=== PATIENT | female | born 1975 | race Caucasian/White ===

== ENCOUNTER 2016-12-14 06:42 | Inpatient (IN) | payer BC ==
[~2016-12-14] VITALS: Ht 167.6 cm; Wt 72.6 kg
[~2016-12-14 06:42] MED LIST: ATIVAN1 MG PO; NORCO1 TA2 PO; SERTRALINE HYDR50 M1 PO; VALIUM2 MG PO; WELLBUTRIN SR150 MG PO
[2016-12-14 07:26] LABS: BASOPHIL % 0.4 % (0-2); PLATELET COUNT 302 x10^3mcL (130-400); RED CELL DISTRIBUTION WIDTH 12.4 % (11.5-14.5)
[2016-12-14 07:27] LABS: CALCIUM 8.3 mg/dL (8.5-10.1); CARBON DIOXIDE 27.6 mmol/L (21-32); CHLORIDE SERUM 108 mmol/L (98-107); CREATININE SERUM 0.8 mg/dL (0.6-1.0); GFR1 > 60 mL/min; GLUCOSE SERUM 97 mg/dL (74-106); POTASSIUM SERUM 3.8 mmol/L (3.5-5.1); SODIUM SERUM 145 mmol/L (136-145)
[2016-12-14 07:32] LABS: ALBUMIN 3.9 g/dL (3.4-5.0); ALKALINE PHOSPHATASE 65 U/L (46-116); ALT/SGPT 23 U/L (14-59); AST/SGOT 13 U/L (15-37); BILIRUBIN TOTAL 0.7 mg/dL (0.20-1.00); LIPASE 153 IU/L (73-393); MAGNESIUM 2.2 mg/dL (1.8-2.4); TOTAL PROTEIN, SERUM 7.4 g/dL (6.4-8.2)
[2016-12-14 08:24] LABS: AMPHETAMINE QUAL UR NONE DETECTED (NEG <=1000)
[2016-12-14 10:06] LABS: CHOLESTEROL/HDL RATIO 2.6
[2016-12-14 10:12] LABS: T3 TOTAL 0.93 ng/mL
[2016-12-14 10:13] LABS: microscopic required? YES
[2016-12-14 10:14] LABS: urine erythrocyte NEGATIVE (NEGATIVE)
[2016-12-14 10:25] LABS: FREE T4 0.85 ng/dL (0.76-1.46); FREE THYROXINE INDEX 2.5 ug/dL (1.4-4.5); T4(THYROXINE) 7.4 ug/dL (4.7-13.3)
[2016-12-14 13:29] VITALS: BP 135/87
[2016-12-14 17:59] VITALS: BP 138/79
[2016-12-14 20:39] VITALS: BP 106/65
[2016-12-15 05:29] VITALS: BP 99/63
[2016-12-15 06:18] LABS: BASOPHIL % 0.6 % (0-2); PLATELET COUNT 230 x10^3mcL (130-400); RED CELL DISTRIBUTION WIDTH 12.5 % (11.5-14.5)
[2016-12-15 06:20] LABS: CALCIUM 7.9 mg/dL (8.5-10.1); CHLORIDE SERUM 111 mmol/L (98-107); CREATININE SERUM 0.7 mg/dL (0.6-1.0); GFR1 > 60 mL/min; GLUCOSE SERUM 84 mg/dL (74-106); MAGNESIUM 2.4 mg/dL (1.8-2.4); PHOSPHOROUS 3.4 mg/dL (2.5-4.9); POTASSIUM SERUM 3.7 mmol/L (3.5-5.1); SODIUM SERUM 146 mmol/L (136-145)
[2016-12-15 09:50] VITALS: BP 121/79
[2016-12-15] MEDS ORDERED: BUPROPION HCL100 M1 PO (11:21)
[2016-12-15] MEDS ORDERED: ATIVAN0.5 M1 PO (11:26)
[2016-12-15 11:44] VITALS: BP 121/79
== END 2016-12-15 13:14 | disposition home or self-care (01) | DRG 391 ==
LOC: ED 06:42 → DU 09:22
PROVIDERS: Emergency Medicine; ADMIT Family Medicine
DX: K29.20 Alcoholic gastritis without bleeding (principal); N17.0 Acute kidney failure with tubular necrosis; G92 Toxic encephalopathy; F10.20 Alcohol dependence, uncomplicated; T51.0X1A Toxic effect of ethanol, accidental (unintentional), initial encounter; F41.8 Other specified anxiety disorders; E86.0 Dehydration; E78.5 Hyperlipidemia, unspecified; Z68.25 Body mass index [BMI] 25.0-25.9, adult; Z88.0 Allergy status to penicillin; Z88.2 Allergy status to sulfonamides; Z88.1 Allergy status to other antibiotic agents; Z90.710 Acquired absence of both cervix and uterus
CPT/HCPCS: 80307; 83880; 84439; G0480; J2060; J2405; J2550; J3010; J3411; J3475; J3490; J7030; Q0092

== ENCOUNTER 2016-12-23 09:37 | Emergency (ER) | payer BC ==
[~2016-12-23 09:37] MED LIST changes: +ATIVAN0.5 M1 PO; +BUPROPION HCL100 M1 PO
[2016-12-23 10:38] LABS: BASOPHIL % 0.3 % (0-2); PLATELET COUNT 320 x10^3mcL (130-400); RED CELL DISTRIBUTION WIDTH 12.8 % (11.5-14.5)
[2016-12-23 10:50] LABS: ALKALINE PHOSPHATASE 84 U/L (46-116); ALT/SGPT 19 U/L (14-59); AST/SGOT 14 U/L (15-37); BILIRUBIN TOTAL 0.6 mg/dL (0.20-1.00); CARBON DIOXIDE 31.4 mmol/L (21-32); CHLORIDE SERUM 106 mmol/L (98-107); CREATININE SERUM 0.9 mg/dL (0.6-1.0); GFR1 > 60 mL/min; GLUCOSE SERUM 97 mg/dL (74-106); LIPASE 216 IU/L (73-393); POTASSIUM SERUM 4.3 mmol/L (3.5-5.1); SODIUM SERUM 142 mmol/L (136-145); TOTAL PROTEIN, SERUM 7.7 g/dL (6.4-8.2)
[2016-12-23 10:55] VITALS: BP 130/80
== END 2016-12-23 12:48 | disposition home or self-care (01) ==
LOC: ED 09:37
PROVIDERS: Emergency Medicine
DX: F10.239 Alcohol dependence with withdrawal, unspecified (principal); Z72.0 Tobacco use
CPT/HCPCS: G0480; J2060; J2270; J2405; J3411; J3475; J3490; J7030

== ENCOUNTER 2017-04-25 19:40 | Emergency (ER) | payer BC ==
[2017-04-25 21:03] VITALS: BP 138/82
== END 2017-04-25 21:03 | disposition home or self-care (01) ==
LOC: ED 19:40
DX: R05 Cough (principal); R11.2 Nausea with vomiting, unspecified; R19.7 Diarrhea, unspecified; R07.89 Other chest pain; Z88.0 Allergy status to penicillin; Z88.2 Allergy status to sulfonamides
CPT/HCPCS: J1885

== ENCOUNTER 2017-06-14 04:03 | Emergency (ER) | payer BC ==
[2017-06-14 04:45] LABS: BASOPHIL % 0.5 % (0-2); PLATELET COUNT 286 x10^3mcL (130-400); RED CELL DISTRIBUTION WIDTH 13.6 % (11.5-14.5)
[2017-06-14 04:46] LABS: UA SPECIFIC GRAVITY 1.025 (1.005-1.035); microscopic required? YES; urine erythrocyte 3+ (NEGATIVE)
[2017-06-14 04:49] LABS: CALCIUM 8.8 mg/dL (8.5-10.1); CARBON DIOXIDE 28.1 mmol/L (21-32); CHLORIDE SERUM 106 mmol/L (98-107); GFR1 > 60 mL/min; GLUCOSE SERUM 98 mg/dL (74-106); POTASSIUM SERUM 3.3 mmol/L (3.5-5.1); SODIUM SERUM 142 mmol/L (136-145)
[2017-06-14 04:53] LABS: ALKALINE PHOSPHATASE 59 U/L (46-116); ALT/SGPT 25 U/L (14-59); AST/SGOT 16 U/L (15-37); BILIRUBIN TOTAL 1.21 mg/dL (0.20-1.00); LIPASE 179 IU/L (73-393); TOTAL PROTEIN, SERUM 7.5 g/dL (6.4-8.2)
[2017-06-14 06:07] VITALS: BP 130/90
== END 2017-06-14 06:07 | disposition home or self-care (01) ==
LOC: ED 04:03
PROVIDERS: Emergency Medicine
DX: N20.1 Calculus of ureter (principal); F17.210 Nicotine dependence, cigarettes, uncomplicated; R03.0 Elevated blood-pressure reading, without diagnosis of hypertension; Z71.6 Tobacco abuse counseling; Z88.0 Allergy status to penicillin; Z88.1 Allergy status to other antibiotic agents; Z88.2 Allergy status to sulfonamides
CPT/HCPCS: 99406; J1885; J2405; J3010; J7030

== ENCOUNTER 2017-08-28 00:28 | Inpatient (IN) | payer BC ==
[~2017-08-28] VITALS: Ht 167.6 cm; Wt 73.5 kg
[2017-08-28 02:27] LABS: PLATELET COUNT 328 x10^3mcL (130-400); RED CELL DISTRIBUTION WIDTH 11.5 % (11.5-14.5)
[2017-08-28 02:28] LABS: BASOPHIL % 2.8 % (0-2)
[2017-08-28 02:30] LABS: CALCIUM 8.6 mg/dL (8.5-10.1); CARBON DIOXIDE 28.6 mmol/L (21-32); CHLORIDE SERUM 107 mmol/L (98-107); CREATININE SERUM 0.8 mg/dL (0.6-1.0); GFR1 > 60 mL/min; GLUCOSE SERUM 111 mg/dL (74-106); POTASSIUM SERUM 3.6 mmol/L (3.5-5.1); SODIUM SERUM 143 mmol/L (136-145)
[2017-08-28 02:35] LABS: ALKALINE PHOSPHATASE 65 U/L (46-116); ALT/SGPT 27 U/L (14-59); AST/SGOT 23 U/L (15-37); TOTAL PROTEIN, SERUM 7.6 g/dL (6.4-8.2)
[2017-08-28 02:44] LABS: AMPHETAMINE QUAL UR NONE DETECTED (NEG <=1000)
[2017-08-28] MEDS ORDERED: PHE15 PO (04:40)
[2017-08-28] MEDS ORDERED: VALIUM2 MG PO (04:40)
[2017-08-28 05:07] LABS: MAGNESIUM 2.5 mg/dL (1.8-2.4); PHOSPHOROUS 3.5 mg/dL (2.5-4.9)
[2017-08-28 05:09] VITALS: BP 166/100
[2017-08-28 05:10] LABS: CHOLESTEROL/HDL RATIO 3.1
[2017-08-28 05:30] LABS: T3 TOTAL 1.13 ng/mL
[2017-08-28 05:40] VITALS: BP 164/100
[2017-08-28 05:41] LABS: FREE T4 1.03 ng/dL (0.76-1.46); FREE THYROXINE INDEX 3.1 ug/dL (1.4-4.5); T4(THYROXINE) 8.9 ug/dL (4.7-13.3)
[2017-08-28 06:12] VITALS: BP 135/91
[2017-08-28 07:14] LABS: microscopic required? NO
[2017-08-28 07:41] LABS: urine erythrocyte NEGATIVE (NEGATIVE)
[2017-08-28 10:13] VITALS: BP 126/84
[2017-08-28 17:19] VITALS: BP 137/90
[2017-08-28 20:48] VITALS: BP 138/93
[2017-08-29 05:44] VITALS: BP 97/70
[2017-08-29 09:16] VITALS: BP 109/89
[2017-08-29] MEDS ORDERED: FOL1 PO (09:43)
[2017-08-29] MEDS ORDERED: THI100 PO (09:44)
[2017-08-29] MEDS ORDERED: THERAGRAN-M1 TA4 PO (09:45)
[2017-08-29] MEDS ORDERED: ZOF4 PO (09:48)
[2017-08-29] MEDS ORDERED: LISINOPRIL10 MG PO (09:50)
[2017-08-29] MEDS ORDERED: VALIUM2 MG PO (09:51)
[2017-08-29 10:06] VITALS: BP 109/89
[2017-08-29] MEDS ORDERED: ESCITALOPRAM10 M1 PO (10:16)
== END 2017-08-29 13:07 | disposition home or self-care (01) | DRG 896 ==
LOC: ED 00:28 → DU 04:25 → MU 04:25 → DU 05:06 → MU 08:17
PROVIDERS: Emergency Medicine; Family Medicine
DX: F10.239 Alcohol dependence with withdrawal, unspecified (principal); G92 Toxic encephalopathy; R45.851 Suicidal ideations; F32.9 Major depressive disorder, single episode, unspecified; I10 Essential (primary) hypertension; F41.9 Anxiety disorder, unspecified; Y90.9 Presence of alcohol in blood, level not specified; E83.42 Hypomagnesemia; E66.3 Overweight; K27.9 Peptic ulcer, site unspecified, unspecified as acute or chronic, without hemorrhage or perforation; K29.70 Gastritis, unspecified, without bleeding; E78.5 Hyperlipidemia, unspecified; R56.9 Unspecified convulsions; Z68.26 Body mass index [BMI] 26.0-26.9, adult; Z88.0 Allergy status to penicillin; Z88.2 Allergy status to sulfonamides; Z88.8 Allergy status to other drugs, medicaments and biological substances; Z90.710 Acquired absence of both cervix and uterus; Z79.899 Other long term (current) drug therapy
CPT/HCPCS: 83880; 84439; G0480; J1885; J2060; J2405; J3010; J7030; Q0092